=== PATIENT | female | born 2000 | race Caucasian/White ===

== ENCOUNTER 2022-08-18 17:38 | Outpatient (CLI) | payer OTHER, SELFPAY | END 2022-08-18 17:39 | disposition home or self-care (01) | LOC: NFLDREF 08-20 07:35 | PROVIDERS: Visit Provider Nurse Practitioner Family | DX: R30.0 Dysuria (principal); R10.9 Unspecified abdominal pain; N39.0 Urinary tract infection, site not specified | CPT/HCPCS: 87086 ==